=== PATIENT | female | born 1940 | race Caucasian/White ===

== ENCOUNTER 2019-05-22 08:00 | Observation (INO) ==
[2019-05-22] MEDS: RINGER'S SOLUTION,LACTATED 1,000 ML IV PRN ×2 (06:58→09:10)
--- NOTE | 2019-05-22 07:31 | ANES ---
Anesthesia Pre Procedure Eval Vitals/Labs: Last Vital Signs Temp 36.6 C 05/22/19 06:37 Pulse 75 05/22/19 06:37 Resp 16 05/22/19 06:37 BP 141/83 05/22/19 06:37 Pulse Ox 98 05/22/19 06:37 HOME MEDICATIONS hydrochlorothiazide 25 mg tablet 25 mg PO DAILY #90 tab 03/30/19 [Last Taken Unknown] naproxen sodium 220 mg tablet 220 mg PO Q12H PRN 03/30/19 [Last Taken 05/11/19] cholecalciferol (vitamin D3) 1,000 unit capsule 1,000 unit PO DAILY 04/30/19 [Last Taken Unknown] Allergies/Adverse Reactions: Allergies Allergy/AdvReac Type Severity Reaction Status Date / Time codeine AdvReac GI upset Verified 05/22/19 06:41 - Planned Procedure Planned Procedure: Right Arthroplasty Total Knee Medication List Reviewed:: Yes Allergies Verified: Yes Medical History (Updated 04/30/19 @ 11:38 by Gage Garcia MD) Arthritis Onset Date: Unknown DJD (degenerative joint disease) of knee Onset Date: ~2009 Edema leg Onset Date: Unknown right ankle Elevated blood pressure reading Onset Date: Unknown H/O cataract Onset Date: ~2015 History of normal mammogram Onset Date: 2011 Normal Papanicolaou smear Onset Date: 2010 Surgical History (Updated 04/30/19 @ 11:02 by Deanna Frazier RN) Normal colonoscopy Onset Date: 2006 H/O cataract extraction Onset Date: ~2015 both eyes History of knee replacement procedure of left knee Onset Date: 03/[facility] Family History (Updated 03/30/19 @ 09:59 by Heather Kumar LPN) Father Hypertension Cancer lung Mother Arthritis Kidney problem Grandmother Diabetes Aunt Lupus x's 2 - Family Anesthesia History Family History:: no untoward family reactions to anesthesia, no familial bleeding tendencies, no family history of clotting disorders, no family history of premature - Airway/Neck/Teeth Within Normal Limits:: Yes Teeth Condition: intact Denture Type: Perm crown/bridge Mallampatti Score: 2 Thyromental (T-M) distance: > 6 cm Mandibulo Hyoid distance: > 3 cm - Respiratory Respiratory Physical: lungs clear Smoking Status: Former smoker Discussed smoking cessation including day of surgery: No Sleep Apnea currently treated: No Sleep Apnea by current assessment: No Discussed Risks/Treatment of SCOTTIE: No - Cardiovascular Tolerate Activity: Fair Heart Sounds: S1 & S2, Regular - Anesthesia Assessment and Plan ASA Class: PS, III Anesthesia Type Plan: Block - Bilateral ultrasound guided adductor canal block, Spinal
[~2019-05-22 08:00] MED LIST: ROPIVACAINE HCL/PF 100 MG, EPINEPHrine 0.2 MG, KETOROLAC TROMETHAMINE 30 MG in NORMAL S... IJ PRN; TRANEXAMIC ACID 1,000 MG in NORMAL SALINE 100 ML IV PRN; ceFAZolin SODIUM 1 GM VIAL IV PRN
[2019-05-22] MEDS ORDERED: MAG HYDROX/ALUMINUM HYD/SIMETH 30 ML UDC PO PRN (09:59)
[2019-05-22] MEDS ORDERED: ONDANSETRON HCL/PF 2 MG/ML VIAL IV PRN (09:59)
[2019-05-22] MEDS ORDERED: MORPHINE SULFATE 2 MG/ML DISP.SYRIN IV PRN (09:59)
[2019-05-22] MEDS ORDERED: MAGNESIUM HYDROXIDE 30 ML UDC PO PRN (09:59)
[2019-05-22] MEDS ORDERED: diphenhydrAMINE HCL 50 MG/ML VIAL IV PRN (09:59)
[2019-05-22] MEDS ORDERED: NORMAL SALINE 1,000 ML IV PRN (10:02)
[2019-05-22] MEDS ORDERED: oxyCODONE HCL/ACETAMINOPHEN 1 TAB TABLET PO PRN (10:08)
--- NOTE | 2019-05-22 10:13 | OR ---
Operative Report - Dictated Report Narrative: Date: 05/22/2019 Preoperative diagnosis: Right knee degenerative joint disease. Postoperative diagnosis: Right knee degenerative joint disease. Procedure: Right total knee arthroplasty. Surgeon: Gage Garcia M.D. Operations Analyst: Chon Carreon PA-C Anesthesia: Spinal with regional block and local periarticular joint injection. Complications: None Specimens: Bone Estimated blood loss: Minimal. Tourniquet time: 64 Minutes at 300 millimeters of mercury. Retained implants: Depuy Attune size 6 standard lugged cemented posterior stabilized femoral component. Size 5 rotating cemented tibial platform. 6 by 7 millimeter posterior stabilized cross-linked tibial insert. 38 millimeter medialized patella button. Indications: Ayana is a 78-year-old healthy active female. This patient was followed in my clinic for period of time with significant complaints of right knee pain consistent with arthritic changes. They had failed conservative measures including but not limited to activity modification, passage of time, medications, and other conservative measures. Patient wished to proceed with surgical treatment. The risks, benefits, and alternatives were discussed in clinic. The risks of , blood clots, bleeding, infection, nerve/tendon blood vessel/ injury, malposition of components, intraoperative fracture, postoperative limited range of motion, persistent pain, failure of components, and need for additional procedures. Patient wished to proceed consent was obtained after answering all questions. Procedure: After marking the correct extremity on the floor, the patient was taken to the operating room. A timeout was performed. IV antibiotics consisting of 2 g of Ancef were administered prior to the procedure. A regional followed by spinal anesthetic was induced by anesthesia on the operative table with all bony prominences well-padded. Acevedo catheter was placed and a bump was placed under the operative side buttock. SCDs and PETE hose were utilized on the nonoperative leg. A well-padded tourniquet was applied to the operative thigh. The operative leg was then pre-scrubbed with alcohol prepped and draped in a standard sterile fashion. After exsanguinating the extremity with an Esmarch bandage, the tourniquet was inflated. After marking out the anterior knee for standard incision centered over the patella, the skin was incised and dissected down to the joint retinaculum. The joint retinaculum was marked out as well as the horizontal axis of the patella, and a standard medial parapatellar arthrotomy was then made. The most proximal aspect of the quadriceps tendon and the patella tendon insertion were protected from release. A partial synovectomy was performed as well as a resection of the infrapatellar fat pad. The distal femoral fat pad proximal to the trochlea was also resected using cautery. The soft tissues were elevated off the medial aspect of the proximal tibia using a Anand elevator ensuring that we did not transect the medial collateral ligament. Upon initial evaluation range of motion was approximately 0 degrees to 120 degrees of flexion. There were signs of advanced arthrosis in the lateral and patellofemoral joint spaces. There were large marginal osteophytes which were removed with a rongeur. The knee was hyperflexed and the patella was tucked laterally. Protecting the surrounding soft tissues with Homans, an entry drill was placed down the femoral canal using Whitesides line for guidance into the entry point. The intramedullary femoral alignment rosendo was utilized in order to cut the distal femur in 5 of valgus resecting 10 millimeters of bone. Next the distal femur was sized to a size 6. An anterior referencing guide was utilized to place the distal femoral cutting block in 3 of external rotation. This was pinned into place. The rotation was confirmed both visually and based on anatomic landmarks. The 4 in 1 cutting jig of the appropriate size was utilized in order to make all bony cuts. Retractors were utilized in order to protect surrounding soft tissues. This cut did not result in any excessive notching. We then cut the box centered over the distal femur. This allowed for resection of the anterior and posterior cruciate ligaments. I then turned my attention to the preparation of the tibia. Using an extra medullary tibial alignment rosendo, 4 millimeters of bone was resected off the lateral articular surface. This was made perpendicular to the mechanical axis of the joint with the alignment rosendo centered over the ankle mortise. The alignment rosendo was parallel to the mechanical axis, centered over the medial one third of the tibial tubercle, paralleling the anterior surface of the tibia. We then turned our attention to the remaining meniscus and soft tissues. These were removed while protecting the surrounding ligaments and soft tissues. The marginal osteophytes off the anterior, posterior, medial, lateral aspects of the femur and tibia were removed. The tibia was sized out to a size 5. Next the tibia was drilled and punched in an externally rotated position as confirmed with a drop rosendo. Next the trial femur and a series of tibial inserts were utilized in order to allow for full extension and maximal flexion. It was found that a 7 millimeter insert gave the best range of motion and stability at multiple flexion points as well as at full extension there was less than 2 mm of gapping both medially and laterally. There was minimal anterior translation with the knee at 90 of flexion and no signs of being able to dislocate the knee. The patella was then prepared. The initial thickness was 23 millimeters. This was reamed down to 15 millimeters parallel to the anterior surface of the patella. It was sized out to a size 38 mm medialized patella button. This was then drilled and trialed. Without any medial restraint the patella tracked appropriately and did not sublux or dislocate. At this point, it was felt these were the appropriate sized implants and all trials were removed. The standard periarticular joint injection consisting of ropivacaine, Toradol, and epinephrine were injected into the periarticular joint tissues. The bony surfaces were thoroughly irrigated with a pulsatile-suction saline irrigation device. A bone plug from the prior resected anterior chamfer cut was placed into the drill hole at the distal femur. The bony surfaces were then dried in preparation for placement of the implants. The cement was vacuum mixed per the second watch sergeant's instructions. The cement was placed on the dry bony surfaces and posterior aspect of the implants. The implants were impacted into place, removing all extruded cement. At this point anesthesia administered tranexamic acid per protocol intravenously. The knee was placed in extension with axial loading with the trial insert while the cement cured. A dilute 0.35% betadyne-saline solution was used to irrigate the knee and allowed to sit in the knee while the cement cured. Once the cement cured, all remaining extruded jared ent was removed. The knee was placed through a range of motion with the trial insert to ensure appropriate range of motion and stability. Final range of motion was approximately 0 to 130 degrees. The knee was again thoroughly irrigated with pulsatile saline lavage. The final polyethylene insert was then impacted into place ensuring no retained soft tissues. The remaining periarticular joint injection was injected. The knee was then packed with lap sponges which were soaked with dilute betadyne solution and the tourniquet was let down. Pressure was held for approximately 2 minutes and then hemostasis was obtained using electrocautery to coagulate any bleeding vessels. The knee was then placed over a triangle and the arthrotomy was closed with interrupted #1 Vicryl after thoroughly irrigating the joint. The deep and subcutaneous tissues were closed with interrupted oh and 3-0 Vicryl respectively. Skin was closed with a running subcutaneous 3-0 Monocryl and brea. Xeroform, 4 x 4's, ABD, Sof-Rol, and a full leg Hammad wrap were applied. All sponge, needle, blade, and instrument counts were correct prior to closing the wounds. Postoperative condition: The patient was awoken and transferred to the postanesthesia care unit in stable condition. Plan is to be admitted to the inpatient medical/surgical floor postoperatively for 24 hours of IV antibiotics, physical therapy, occupational therapy, and medical co-management. Patient will be weightbearing as tolerated with range of motion as tolerated. DVT prophylaxis will be with SCDs, PETE hose, and pharmacological anticoagulation. Anticipated hospital stay is approximately 2-4 days.
--- NOTE | 2019-05-22 10:26 | ANES ---
Post Anesthesia Discharge - Transfer of Care Transfer of Care handoff given to nurse: Yes - Discharge from PACU Discharge from PACU when meets criteria: Yes - Discharge to ASU Discharge to ASU-no complications/pt stable: Yes
--- NOTE | 2019-05-22 10:30 | ANES ---
Anesthesia Procedure Note Procedure Note: ANESTHESIA PROCEDURE NOTE Date of Procedure: 05/22/2019. Time of procedure: 0740. Performed by: Andrei Owens CRNA Phototypesetter Operator: None. Preprocedure diagnosis: Right knee degenerative joint disease. Post procedure diagnosis: Same. Procedure: Right ultrasound guided adductor canal block for postoperative analgesia. Indications: The patient is a 78-year-old female, requesting right ultrasound- guided adductor canal block for postoperative analgesia related to right total knee arthroplasty. Findings: See below. Details of the procedure: The tissue over the intended target site was cleansed with ChloraPrepand draped in a sterile fashion. 2 ml Lidocaine 1 % was infiltrated to the skin and subcutaneous tissue at the intended target site. Under sterile technique and ultrasound guidance a 18-gauge Tuohy needle was inserted through the right sartorius muscle to the saphenous nerve just anterior and medial to the superficial femoral artery and vein. 15 mL's of 0.5% bupivacaine was injected after negative aspiration for blood. Needle tip and spread of local anesthetic surrounding the saphenous nerve was observed throughout the injection with real time ultrasound visualization. The Tuohy needle was then removed intact. No complications were noted. The images were retained in the Hospital medical database . EBL: Minimal. Fluids: N/A. Specimen: N/A. Post procedure condition: The patient tolerated the procedure well. No complications were noted. Thank you for this consultation. Andrei wOens CRNA
--- NOTE | 2019-05-22 12:10 | ANES ---
Post Anesthesia Assessment - Vital Signs Vitals: Last Vital Signs Temp 36.0 C 05/22/19 10:49 Pulse 65 05/22/19 10:49 Resp 20 05/22/19 10:49 BP 145/75 05/22/19 10:49 Pulse Ox 97 05/22/19 10:49 Airway Patency: Normal - Mental Status Level Of Consciousness: Awake - Pain Level Pain Score: 0 - N/V Assessment Nausea/Vomiting Presence: None Dehydration:: No
[2019-05-22] MEDS: oxyCODONE HCL/ACETAMINOPHEN 1 TAB TABLET PO PRN ×3 (12:22→22:08)
[2019-05-22] MEDS: ceFAZolin SODIUM 2 GM in DEXTROSE 5 % IN WATER 100 ML IV SCH ×4 (14:32→21:06)
[2019-05-22] MEDS ORDERED: SENNOSIDES/DOCUSATE SODIUM 1 TAB TABLET PO SCH (21:00)
[2019-05-23] MEDS: ACETAMINOPHEN 500 MG TABLET PO PRN ×2 (02:13→10:26)
[2019-05-23] MEDS: ceFAZolin SODIUM 2 GM in DEXTROSE 5 % IN WATER 100 ML IV SCH ×2 (05:09)
[2019-05-23 05:39] LABS: Anion Gap 9.7 mmol/L (6.8-13.8); BUN/Creatinine Ratio 9.9 (9.0-21.6); Calcium * 8.7 mg/dL (7.9-10.9); Carbon Dioxide 30.2 mmol/L (24-32.6); Estimated Creat Clear 50.6; Potassium 2.9 mmol/L (3.4-4.6)
[2019-05-23 05:51] LABS: Hemoglobin 12.2 gm/dL (12.5-16.0); Mean Cell Volume 88.9 fl (78-100); Mean Corpuscular Hemoglobin 29.3 pg (27-31); Mean Platelet Volume 10.3 fl (8-12.5); Platelet Count 182 K/mm3 (150-450); Red Blood Count 4.16 M/mm3 (4.2-5.4); Red Cell Distribution Width 13.4 % (11.5-14.0); White Blood Count 6.6 K/mm3 (4.0-10.5)
[2019-05-23] MEDS: oxyCODONE HCL/ACETAMINOPHEN 1 TAB TABLET PO PRN ×2 (06:19→16:05)
[2019-05-23] MEDS ORDERED: POTASSIUM CHLORIDE 20 MEQ TABLET.SA PO ONE (07:47)
[2019-05-23] MEDS ORDERED: CHOLECALCIFEROL 1,000 UNIT CAPSULE PO SCH (09:00)
[2019-05-23] MEDS ORDERED: HYDROCHLOROTHIAZIDE 25 MG TABLET PO SCH (09:00)
[2019-05-23] MEDS ORDERED: ENOXAPARIN SODIUM 40 MG/0.4 ML SYRG SC SCH (09:00)
--- NOTE | 2019-05-23 14:42 | DS ---
Description of Stay: Patient is a 78-year-old female postop day 1 status post right total knee arthroplasty. Patient was admitted postoperatively for observation, return to p.o. diet, pain control, PT prior to discharge. Patient is passed all PT goals without significant complication, her pain is well controlled with p.o. pain medication. She is return to p.o. diet without significant complication. There have been no other significant postoperative complications. Note patient's labs today revealed a potassium of 2.9, patient was given on oral dose of potassium, labs will be repeated if potassium is elevated to an adequate level she will be discharged today. Plan to discharge home and begin outpatient PT. Patient will continue with Lovenox until 10 days postoperatively, followed by 325 mg aspirin daily for 6 weeks. She will follow-up at 2 weeks postop in the orthopedic outpatient clinic. Exam today revealed RLE--> no significant drainage, erythema, pernio dressing in place, distal capillary refill brisk, 4+/5 flexion/extension of the knee, mild diffuse tenderness about right knee, sensation intact light touch. Discussed with patient gradual increase in activity following PT restrictions. Patient will be given a pain medication for pain control, discussed the use of [id number]-[id number] medications as well and to not exceed 4000 mg of Tylenol within 1 day. Patient expressed understanding to all these instructions will call our office with any acute questions or concerns. Due to take patient's potassium reviewed a potassium containing diet and discuss possible use of this while at home, consider follow-up with PCP for rechecks. Discussed with Dr. Mcdowell continued follow-up for potassium repeat lab on 05/25/2019. Will be followed by PCP. Procedures Performed: see notes below List Procedures: Status post right knee total arthroplasty Results and Findings: Lab Pending Results 05/22/19 10:55: Pathology Specimen Sent to path 05/23/19 05:25: WBC 6.6, RBC 4.16 L, Hgb 12.2 L, Hct 37.0, MCV 88.9, MCH 29.3, MCHC 33.0, RDW 13.4, Plt Count 182, MPV 10.3 05/23/19 05:25: Sodium 137, Plasma Sodium 137, Potassium 2.9 L D, Chloride 100, Carbon Dioxide 30.2, Anion Gap 9.7, BUN 8 D, Creatinine 0.81, Est GFR (Non-Af Amer) 73, BUN/Creatinine Ratio 9.9, Random Glucose 127 H, Calcium 8.7 05/23/19 14:18: Potassium 2.9 L Discharge Location: Home Disposition: Home self-care Condition: Good Discharge Activity: Activity as tolerated, Weight bearing Discharge Diet: General/regular food Referrals: Gauri Grijalva MD [Primary Care Provider] - Problem Oriented Discharge Instructions to Patient/Family: Total Knee Replacement, Care After, Kyed-sy-Grmp Print Language (Ghanaian or Venezuelan Available): Ghanaian Additional Patient Instructions (free text): Follow up Physical Therapy at [facility] outpatient rehab on TuesdayMay 25 at 10:30am. Follow up Dr Garcia office appointment on TuesdayJune 06 at 9:30am. Continue Ice machine at home to Right knee. Do not exceed more than 4000mg of Tylenol in 24 hour period. Prescriptions (Any new or edited meds): RX: Enoxaparin Sodium [Lovenox] 40 mg SC Q24H #9 disp.syrin RX: oxyCODONE HCL/ACETAMINOPHEN [Percocet 5 MG/325 MG] 1 - 2 tab PO Q4H PRN #40 tab PRN Reason: Severe Pain (Pain Scale 7-10) Complete Home Medications List: Complete Home Medication List: hydrochlorothiazide 25 mg tablet 25 mg PO DAILY #90 tab 03/30/19 naproxen sodium 220 mg tablet 220 mg PO Q12H PRN 03/30/19 cholecalciferol (vitamin D3) 1,000 unit capsule 1,000 unit PO DAILY 04/30/19 RX: Enoxaparin Sodium [Lovenox] 40 mg SC Q24H #9 disp.syrin 05/23/19 RX: oxyCODONE HCL/ACETAMINOPHEN [Percocet 5 MG/325 MG] 1 - 2 tab PO Q4H PRN #40 tab 05/23/19 Amb Orders for Discharge: PT Evaluation and Treatment* Location: None Selected
[2019-05-23 16:29] VITALS: BP 144/79
== END 2019-05-23 16:20 | disposition home or self-care (01) ==
LOC: MS → EDSTATUS 08:00
PROVIDERS: ADMIT Orthopaedic Surgery; ATTEND Orthopaedic Surgery
DX: M17.11 Unilateral primary osteoarthritis, right knee; Z96.651 Presence of right artificial knee joint
CPT/HCPCS: 36415; 73560; 80048; 84132; 85027; 88305; 88311; 97110; 97116; 97161; 97165; 97535; G0378